=== PATIENT | female | born 1990 | race Caucasian/White ===

== ENCOUNTER 2017-03-20 19:41 | Emergency (ER) | payer BC, SELFPAY | END 2017-03-20 20:28 | disposition home or self-care (01) | LOC: ERS 19:41 | DX: H66.91 Otitis media, unspecified, right ear (principal) | CPT/HCPCS: 99282 ==

== ENCOUNTER 2018-03-14 22:51 | Emergency (ER) | payer SELFPAY | END 2018-03-14 23:44 | disposition home or self-care (01) | LOC: ERS 22:51 | DX: N30.90 Cystitis, unspecified without hematuria (principal); M62.838 Other muscle spasm | CPT/HCPCS: 99283 ==

== ENCOUNTER 2018-03-21 00:21 | Emergency (ER) | payer SELFPAY ==
[2018-03-21 01:06] LABS: Bilirubin Negative (Negative); Blood, Urine Small (Negative); Clarity CLEAR (Clear); Glucose, Urine (Dipstick) Negative (Negative); Leukocyte Small (Negative); Nitrite Negative (Negative); Pregnancy Test - Urine (BHCG) Negative (Negative); Pregu Control Background? CLEAR/WHITE (CLR/WHITE); Pregu Control Bar Appear? YES (CONTROL BAR); Protein, Urine (Dipstick) Negative (Neg-Trace); Specific Gravity 1.017 (1.002-1.036); Specific Gravity, Urine 1.017 (1.002-1.036); Urobilinogen 0.2 mg/dL (0.2-1.0); pH, Urine 5.5 (5.0-9.0)
[2018-03-21 01:08] LABS: Bacteria/HPF None Seen HPF (None Seen); Hyaline Casts/LPF 0-3 HYALINE CAST LPF (0-3 Hyaline); Pathc Cast-AUWi Flag 0.29 (0-2.49); Squamous Epithelial 0-3 HPF (0-3); WBC/HPF 0-3 HPF (0-3)
[2018-03-21] MEDS ORDERED: Ketorolac Tromethamine 30 MG/ML VIAL ONE (03:27)
== END 2018-03-21 03:51 | disposition home or self-care (01) ==
LOC: ERS 00:21
DX: M54.5 Low back pain (principal); F41.9 Anxiety disorder, unspecified
CPT/HCPCS: 81003; 81015; 81025; 96372; J1885

== ENCOUNTER 2018-03-24 16:24 | Emergency (ER) | payer SELFPAY ==
[2018-03-24] MEDS ORDERED: Acetaminophen 500 MG TAB ONE (16:51)
== END 2018-03-24 18:28 | disposition home or self-care (01) ==
LOC: ERS 16:24
DX: J11.1 Influenza due to unidentified influenza virus with other respiratory manifestations (principal); Z79.899 Other long term (current) drug therapy
CPT/HCPCS: 99283

== ENCOUNTER 2018-06-28 12:35 | Emergency (ER) | payer SELFPAY ==
[2018-06-28] MEDS ORDERED: Ketorolac Tromethamine 30 MG/ML VIAL ONE (13:05)
[2018-06-28] MEDS ORDERED: Dexamethasone 4 mg/ml Vial ONE (13:05)
== END 2018-06-28 13:39 | disposition home or self-care (01) ==
LOC: ERS 12:35
DX: J02.9 Acute pharyngitis, unspecified (principal)
CPT/HCPCS: 87081; 87430; 96372; J1100; J1885

== ENCOUNTER 2018-08-14 23:08 | Emergency (ER) | payer SELFPAY ==
[2018-08-14 23:39] LABS: #Basophils 0.1 thou/uL (0.0-0.2); #Eosinphils 0.2 thou/uL (0.0-0.7); #Lymphocytes 3.2 thou/uL (1.20-3.40); #Monocytes 0.6 thou/uL (0.11-0.59); #Neutrophils 6.5 thou/uL (1.40-6.50); %Basophils 0.7 % (0.0-1.0); %Eosinophils 1.5 % (0.0-10.0); %Lymphocytes 30.6 % (21.0-51.0); %Monocytes 5.5 % (0.0-10.0); %Neutrophils 61.7 % (42.0-75.0); Hemoglobin 12.1 g/dL (12.0-16.0); Mean Corpuscular Hemoglobin 28.5 pg (27.0-31.0); Mean Corpuscular Volume 86.5 fL (78.0-98.0); Mean Platelet Volume 6.1 fL (7.4-10.4); Platelet Count 328 thou/uL (130-400); RBC Distribution Width 13.1 % (11.5-14.5); Red Blood Cell (RBC) Count 4.23 mill/uL (4.20-5.40); White Blood Cell (WBC) Count 10.5 thou/uL (4.8-10.8)
[2018-08-14 23:39] LABS: Bilirubin Negative (Negative); Blood, Urine Trace (Negative); Clarity Clear (Clear); Glucose, Urine (Dipstick) Negative (Negative); Leukocyte Trace (Negative); Nitrite Negative (Negative); Protein, Urine (Dipstick) Negative (Neg-Trace); Urobilinogen 0.2 mg/dL (0.2-1.0)
[2018-08-14 23:48] LABS: BHCG - Serum POSITIVE (NEGATIVE); Pregs Control Background? CLEAR/WHITE (CLR/WHITE); Pregs Control Bar Appear? YES (CONTROL BAR)
[2018-08-14 23:50] LABS: Bacteria/HPF 1+ HPF (None Seen); RBC/HPF 0-3 HPF (0-3); WBC/HPF 0-3 HPF (0-3)
[2018-08-14 23:58] LABS: ALT (SGPT) 16 U/L (8-55); AST (SGOT) 16 U/L (5-34); Albumin 4.5 g/dL (3.5-5.0); Alkaline Phosphatase 51 U/L (40-150); Anion Gap 13 mmol/L (10-20); BUN (Urea Nitrogen) 14 mg/dL (7.0-18.7); Bilirubin, Total 0.3 mg/dL (0.2-1.2); Calc. Creatinine Clearance 0 mL/min (70-130); Calcium 10.2 mg/dL (7.8-10.44); Carbon Dioxide 24 mmol/L (22-29); Chloride 104 mmol/L (98-107); Estimated GFR-MDRD Greater than 90; Globulin 3.4 g/dL (2.4-3.5); Glucose 94 mg/dL (70-105); Potassium 3.9 mmol/L (3.5-5.1); Protein, Total 7.9 g/dL (6.0-8.3); Sodium 137 mmol/L (136-145)
--- NOTE | 2018-08-15 07:52 | ULT ---
PRELIMINARY REPORT/[facility]/EMERGENCY AFTER HOURS PROCEDURE: EXAMS: US First Trimester, Transabdominal US , Transvaginal US Duplex Arterial/Venous of the Pelvis, Complete CLINICAL HISTORY: with pain. TECHNIQUE: Real-time transabdominal and transvaginal obstetrical ultrasound of the maternal pelvis and a first trimester with image documentation. Transvaginal imaging was used for better evaluation of the fetus and adnexa. Real-time duplex ultrasound scan of the pelvis integrating B-mode twodimensi onal vascular structure, Doppler spectral analysis and color flow Doppler imaging. COMPARISON: No relevant prior studies available. FINDINGS: Gestation: There are products of an intrauterine gestation as evidenced by gestational sac. There is no visible pole. There are no appreciable heart tones. Estimated sonographic age based on mean sac diameter: 5 weeks 0 days. Estimated date of confinement based on mean sac diameter: 2.07 Maternal anatomy: Uterus: Endometrium thickened at 18 mm, which can be seen in early gestation. Ovaries: No solid masses. Normal vascular flow bilaterally. Adnexa: Unremarkable. Free fluid: Absent. Impression: Products of an intrauterine gestation are identified however viability cannot be established at this time. Differential considerations include: -Viable gestation, too early to visualize pole / heart tones. -Blighted ovum / nonviable gestation. -An ectopic gestation is unlikely given presence of intrauterine products. Thank you for allowing us to participate in the care of your patient. Dictated and Authenticated by: Dodie Nagy MD 08/15/2018 3:11 AM Central Time ([place] & [place]) FINAL REPORT US Pelvic Transvag W Doppler History: [Pelvic pain] Comparison: Pelvic ultrasound 2009 Findings/Impression: Real-time grayscale, color, and spectral analysis of the pelvis was performed t ransabdominal and transvaginal approach. Findings and impression are concordant with the preliminary report. Close follow-up hCG and ultrasound is recommended. Transcribed Date/Time: 08/15/2018 8:05 AM
== END 2018-08-15 03:32 | disposition home or self-care (01) ==
LOC: SCSER 23:08
DX: O23.41 Unspecified infection of urinary tract in pregnancy, first trimester (principal)
CPT/HCPCS: 36415; 76856; 80053; 81003; 81015; 84702; 84703; 85025

== ENCOUNTER 2018-08-16 14:01 | Emergency (ER) | payer SELFPAY ==
--- NOTE | 2018-08-16 15:40 | ULT ---
PELVIC ULTRASOUND INCLUDING TRANSABDOMINAL AND TRANSVAGINAL AND VASCULAR DUPLEX IMAGING: HISTORY: Pain. COMPARISON: 08/15/2018. FINDINGS: HCG is now 3932.06 whereas it was approximately 200 at 1:00 on 08/15/2018. The uterus measures 10.4 x 6.3 x 6.9 cm. The right ovary measures 2.8 x 2.3 x .2 cm. Left ovary 2.7 x 2.0 x 1.8 cm. Small gestational sac is again noted. By size measurement, it measures approximately 5 weeks 2 days which is slightly discrepant from the prior study of 08/15/2018, but I am not sure whether this is sign ificant given small overall size and possible different points of measurement. Trace cul-de-sac flui d. IMPRESSION: Small gestational sac. It appears to be very slightly smaller than from the prior study, although th is small amount of difference could be potentially related to different points of measurement. Elieser nued short-term followup HCGs are recommended. If there remains clinical concern for viability , a followup ultrasound study in a week or so might be considered. POS: [facility]
== END 2018-08-16 15:58 | disposition home or self-care (01) ==
LOC: SCSER 14:01
DX: O20.0 Threatened abortion (principal); Z3A.01 Less than 8 weeks gestation of pregnancy
CPT/HCPCS: 76856; 84702

== ENCOUNTER 2018-09-25 06:42 | Emergency (ER) | payer MEDICAID, OTHER ==
[2018-09-25] MEDS ORDERED: diphenhydrAMINE 50 MG CAP ONE (07:16)
[2018-09-25 07:24] LABS: #Eosinphils 0.1 thou/uL (0.0-0.7); #Lymphocytes 2.7 thou/uL (1.20-3.40); #Monocytes 0.7 thou/uL (0.11-0.59); #Neutrophils 4.1 thou/uL (1.40-6.50); %Basophils 0.6 % (0.0-1.0); %Eosinophils 1.9 % (0.0-10.0); %Lymphocytes 35.3 % (21.0-51.0); %Monocytes 8.5 % (0.0-10.0); %Neutrophils 53.7 % (42.0-75.0); Hemoglobin 11.5 g/dL (12.0-16.0); Mean Corpuscular HGB CONC 32.3 g/dL (32.0-36.0); Mean Corpuscular Hemoglobin 28.6 pg (27.0-31.0); Mean Corpuscular Volume 88.4 fL (78.0-98.0); Mean Platelet Volume 6.8 fL (7.4-10.4); Platelet Count 301 thou/uL (130-400); Red Blood Cell (RBC) Count 4.04 mill/uL (4.20-5.40); White Blood Cell (WBC) Count 7.7 thou/uL (4.8-10.8)
[2018-09-25 08:37] LABS: Bilirubin Negative (Negative); Blood, Urine Negative (Negative); Clarity Clear (Clear); Glucose, Urine (Dipstick) Normal (Negative); Leukocyte Negative Leu/uL (Negative); Nitrite Negative (Negative); Protein, Urine (Dipstick) Negative (Neg-Trace); Urobilinogen Normal mg/dL (Less than 2)
--- NOTE | 2018-09-25 11:08 | ULT ---
PELVIC ULTRASOUND: HISTORY: Pelvic pain. FINDINGS: Real-time imaging of the pelvis was obtained transabdominally. This shows a single viable intrauteri ne . [place] to rump length measures are 4.3 cm corresponding to 11 weeks 1 day. Gestational sac measures 4.8 cm corresponding to 10 weeks 3 days. heart rate is 173 b.p.m. No subchorion ic bleed is noted. Follicles are seen involving the right ovary. The left ovary is normal in appearance. DOPPLER EVALUATION WITH SPECTRAL ANALYSIS: Normal flow is shown to the adnexa. IMPRESSION: Single viable intrauterine . Measurements correspond to a gestational age of 10 weeks 6 day s. Estimated date of delivery 04/17/2019. POS: [facility]
== END 2018-09-25 09:04 | disposition home or self-care (01) ==
LOC: ERS 06:42
DX: O99.89 Other specified diseases and conditions complicating pregnancy, childbirth and the puerperium (principal); R10.9 Unspecified abdominal pain; Z3A.11 11 weeks gestation of pregnancy
CPT/HCPCS: 36415; 76856; 81003; 84702; 85025; 93976; Q0163

== ENCOUNTER 2018-09-26 07:56 | Emergency (ER) | payer OTHER ==
[2018-09-26] MEDS ORDERED: diphenhydrAMINE 50 MG/ML VIAL ONE (08:31)
[2018-09-26] MEDS ORDERED: Metoclopramide HCl 10 MG/2 ML VIAL ONE (08:31)
[2018-09-26 08:50] LABS: #Eosinphils 0.1 thou/uL (0.0-0.7); #Lymphocytes 0.8 thou/uL (1.20-3.40); #Monocytes 0.4 thou/uL (0.11-0.59); #Neutrophils 8.7 thou/uL (1.40-6.50); %Basophils 0.3 % (0.0-1.0); %Eosinophils 0.7 % (0.0-10.0); %Lymphocytes 8.3 % (21.0-51.0); %Monocytes 4.3 % (0.0-10.0); %Neutrophils 86.4 % (42.0-75.0); Hemoglobin 13.1 g/dL (12.0-16.0); Mean Corpuscular HGB CONC 32.6 g/dL (32.0-36.0); Mean Corpuscular Volume 88.8 fL (78.0-98.0); Mean Platelet Volume 6.8 fL (7.4-10.4); Platelet Count 281 thou/uL (130-400); RBC Distribution Width 12.1 % (11.5-14.5); Red Blood Cell (RBC) Count 4.52 mill/uL (4.20-5.40); White Blood Cell (WBC) Count 10.1 thou/uL (4.8-10.8)
[2018-09-26 09:09] LABS: ALT (SGPT) 10 U/L (8-55); AST (SGOT) 12 U/L (5-34); Albumin 3.8 g/dL (3.5-5.0); Alkaline Phosphatase 45 U/L (40-150); Anion Gap 12 mmol/L (10-20); BUN (Urea Nitrogen) 8 mg/dL (7.0-18.7); Bilirubin, Total 0.4 mg/dL (0.2-1.2); Calc. Creatinine Clearance 0 mL/min (70-130); Calcium 9.4 mg/dL (7.8-10.44); Carbon Dioxide 21 mmol/L (22-29); Chloride 104 mmol/L (98-107); Estimated GFR-MDRD Greater than 90; Globulin 3.4 g/dL (2.4-3.5); Glucose 108 mg/dL (70-105); Potassium 3.9 mmol/L (3.5-5.1); Protein, Total 7.2 g/dL (6.0-8.3); Sodium 133 mmol/L (136-145)
== END 2018-09-26 10:23 | disposition home or self-care (01) ==
LOC: ERS 07:56
DX: O21.9 Vomiting of pregnancy, unspecified (principal); O99.89 Other specified diseases and conditions complicating pregnancy, childbirth and the puerperium; R19.7 Diarrhea, unspecified; Z3A.10 10 weeks gestation of pregnancy
CPT/HCPCS: 80053; 85025; 96361; 96365; 96372; 96375; J0500; J1200; J2765

== ENCOUNTER 2018-12-16 16:34 | Day surgery (SDC) | payer OTHER ==
[2018-12-16 17:39] VITALS: TEMP 98.6; BMI 29.2
[2018-12-16 18:02] LABS: Amnisure Internal Control QC ACCEPTABLE (ACCEPTABLE); Amnisure Test No Membranes Rupture (No Rupture)
[2018-12-16] MEDS ORDERED: hydrALAZINE 20 MG/ML VIAL SLOW IVP PRN (18:09)
--- NOTE | 2018-12-17 07:25 | PRG ---
DATE OF SERVICE: 12/16/2018 TIME OF SERVICE: 1810 hours. PRESENTING COMPLAINT: Possible rupture of membranes. HISTORY OF PRESENT ILLNESS: Ms. Brantley is a 28-year-old 3, para 2, at 21 weeks and 6 days with due date of 04/22/2019. She sees Dr. Dimas. She reports today, at the mailbox, she had liquid running down her legs and then noted again a little bit later. She denies current leakage of fluid. She denies contractions. She denies vaginal bleeding. She reports an active fetus. WHARF HELPER HISTORY: x2. Blood type A positive. MEDICAL HISTORY: Mixed anxiety, depression disorder. SURGICAL HISTORY: [place] tooth. ALLERGIES: NONE. MEDICATIONS: Sertraline and vitamins. SOCIAL HISTORY: Denies tobacco, alcohol, or IV drug abuse. FAMILY HISTORY: Noncontributory. REVIEW OF SYSTEMS: Noncontributory. PHYSICAL EXAMINATION: GENERAL: White female, in no acute distress. VITAL SIGNS: Temperature 98.4, pulse 85, respirations are 18, and blood pressure 118/72. HEENT: Within normal limits. LUNGS: Clear to auscultation bilaterally. HEART: Regular rhythm. ABDOMEN: Soft and nontender. Fundal height 22. FHTs 140s. PELVIS: Vulva without lesions, vagina without discharge. Cervix closed long and high. No pooling of fluid noted in the vagina. EXTREMITIES: No clubbing, cyanosis, or edema. DIAGNOSTIC STUDIES: LABORATORY RESULTS: AmniSure is negative for rupture of membranes. IMPRESSION: Asymptomatic vaginal discharge/leukorrhea without evidence of rupture of membranes or pathologic discharge at 21 to 22 weeks' gestation. PLAN: ER precautions. Discharge home. Keep scheduled followup with Dr. Dimas. Job ID: [id number]
== END 2018-12-16 18:16 | disposition home health service (06) ==
LOC: L&D/OP 16:34
PROVIDERS: ATTEND Obstetrics & Gynecology
DX: O99.89 Other specified diseases and conditions complicating pregnancy, childbirth and the puerperium (principal); N89.8 Other specified noninflammatory disorders of vagina; O99.342 Other mental disorders complicating pregnancy, second trimester; F41.3 Other mixed anxiety disorders; F32.9 Major depressive disorder, single episode, unspecified; Z3A.21 21 weeks gestation of pregnancy; Z79.899 Other long term (current) drug therapy
CPT/HCPCS: 84112

== ENCOUNTER 2019-03-17 00:42 | Day surgery (SDC) | payer OTHER ==
[2019-03-17 01:17] VITALS: BP 121/76; TEMP 99.3; BMI 30.7
[2019-03-17] MEDS ORDERED: hydrALAZINE 20 MG/ML VIAL SLOW IVP PRN (01:40)
[2019-03-17 02:04] LABS: Bilirubin Negative (Negative); Blood, Urine Negative (Negative); Clarity Clear (Clear); Glucose, Urine (Dipstick) Normal (Negative); Leukocyte 250 Leu/uL (Negative); Nitrite Negative (Negative); Protein, Urine (Dipstick) Negative (Neg-Trace); RBC/HPF 0-3 HPF (0-3); Squamous Epithelial 0-3 HPF (0-3); Urobilinogen Normal mg/dL (Less than 2); WBC/HPF 0-3 HPF (0-3)
[2019-03-17 02:12] LABS: Bacteria/HPF 1+ HPF (None Seen)
--- NOTE | 2019-03-17 02:36 | PRG ---
DATE OF SERVICE: 03/17/2019 CHIEF COMPLAINT: Pelvic pressure and contractions. PRIMARY OB: Letty Dimas DO. HISTORY OF PRESENT ILLNESS: The patient is a 29-year-old, G3, P2 female with an intrauterine at 34 weeks and 6 days, who is presenting to Labor and Delivery after experiencing uterine contractions and pelvic pressure this evening. She felt like the baby was going to fall out and came for evaluation. The patient has had 2 previous pregnancies, both delivered at term. She does have a history of urinary tract infections prior, but has had 1 during this . She denies any change in discharge. She denies any recent intercourse, any recent illness, fever, fall, headache, chest pain, shortness of breath, nausea, vomiting, diarrhea, constipation, hip problems, knee problems, muscle weakness, new rashes, vaginal bleeding, leakage of fluid, urinary urgency or frequency. PAST MEDICAL HISTORY: She has had anxiety and depression. PAST SURGICAL HISTORY: She has had her wisdom tooth removed. ALLERGIES: NO KNOWN DRUG ALLERGIES. MEDICATIONS: 1. vitamins. 2. Zoloft. SOCIAL HISTORY: Denies drug, alcohol or tobacco use. REVIEW OF SYSTEMS: Per HPI. PHYSICAL EXAMINATION: VITAL SIGNS: Blood pressure 121/76, heart rate of 82, saturating 98% on room air, temperature 99.3. GENERAL: She appears to be in no acute distress. She is alert, oriented, cooperative, and pleasant to interact with. HEAD: Normocephalic and atraumatic. LUNGS: Clear to auscultation bilaterally. HEART: Has a regular rate and rhythm. ABDOMEN: Gravid, soft, nontender. She does have some mild tenderness with deviation of the uterus in the suprapubic region. EXTREMITIES: Nontender, nonedematous. GENITOURINARY: Vulva without masses, lesions, or erythema. She does have a Bartholin's gland cyst on the left side that is approximately 1 to 1.5 cm in diameter. Cystic fluid appears to be clear. Vagina is moist with moderate amount of discharge. Cervix is visibly closed. VPIII is collected. On digital exam, cervix is closed and thick. She does have tenderness in her pelvic floor musculature and along the vaginal sidewall. heart tracing shows the fetus with a baseline in the 130s with moderate long-term variability, positive 15/15 accelerations. Tocometer showing some irritability, but no regular contraction pattern. ASSESSMENT AND PLAN: The patient is a 29-year-old multiparous female with an intrauterine at 34 weeks and 6 days, having pelvic pressure and contractions, but no evidence of labor. Urinalysis and VPIII both have been collected and are being sent for evaluation. Fetus has a category 1 tracing and reactive non-stress test. We will be awaiting lab results. Otherwise, the patient is also getting IV hydration. We will review results and make management decisions at that time. UA sig for bacteruria, LE. macrobid 100 bid x1wk provided. vp3 pending.pt asked to call in the morning for results no evidence of labor. fetus reactive with cat 1. Job ID: [id number] [facility]
== END 2019-03-17 02:48 | disposition home health service (06) ==
LOC: L&D/OP 00:42
PROVIDERS: ATTEND Obstetrics & Gynecology
DX: O47.03 False labor before 37 completed weeks of gestation, third trimester (principal); O99.343 Other mental disorders complicating pregnancy, third trimester; F41.9 Anxiety disorder, unspecified; F32.9 Major depressive disorder, single episode, unspecified; Z3A.34 34 weeks gestation of pregnancy; Z79.899 Other long term (current) drug therapy
CPT/HCPCS: 81001; 87480; 87510; 87660

== ENCOUNTER 2019-03-24 19:02 | Day surgery (SDC) | payer OTHER ==
[2019-03-24 19:38] VITALS: BMI 31.0
[2019-03-24] MEDS ORDERED: hydrALAZINE 20 MG/ML VIAL SLOW IVP PRN (20:26)
[2019-03-24] MEDS ORDERED: metroNIDAZOLE 500 MG TAB PO SCH (20:30)
--- NOTE | 2019-03-24 22:19 | PRG ---
DATE OF SERVICE: 03/24/2019 PRIMARY OB: Dr. Letty Dimas. CHIEF COMPLAINT: Abdominal pain. HISTORY OF PRESENT ILLNESS: The patient is a 29-year-old, G3, P2 female with an intrauterine at 35 weeks and 6 days, presenting to Labor and Delivery with abdominal pains that have been present now for several days. The patient was seen here a week ago, where she was diagnosed with urinary tract infection, placed on Macrobid and diagnosis of bacterial vaginosis and [place] on a VPIII, the plan had been for the patient to follow up in the morning with phone call. This did not happen and the patient reports that she has not been treated. The patient denies any change in her discharge, leakage of fluid, or vaginal bleeding. She does report she was seen by Dr. Beckford earlier this morning and was noted to have a cervical exam of 1 cm and was discharged home. The patient reports her contractions over the last several hours has increased in intensity. She denies any fever, fall, headache, chest pain, or shortness of breath. She has had some nausea. Denies vomiting. Reports two days of diarrhea. Denies any new rashes, hip problems, knee problems, or muscle weakness. Denies chest pain or shortness of breath. Denies vaginal bleeding, leakage of fluid, urinary urgency or frequency. PAST MEDICAL HISTORY: Anxiety and depression. PAST SURGICAL HISTORY: [place] tooth extraction. ALLERGIES: NO KNOWN DRUG ALLERGIES. MEDICATIONS: vitamins and Zoloft. SOCIAL HISTORY: Denies drug, alcohol, or tobacco use. REVIEW OF SYSTEMS: Per HPI. OB LABS: Blood type is A positive. Antibody screen is negative. VDRL is nonreactive. Hepatitis B surface antigen is nonreactive. HIV is nonreactive. In the first and third trimester, GC chlamydia negative. She is rubella immune. Diabetes screen is 104. Third trimester VDRL is negative. REVIEW OF SYSTEMS: Per HPI. PHYSICAL EXAMINATION: VITAL SIGNS: Blood pressure is 126/75, heart rate of 86, respiratory rate of 18, and temperature 97.9. GENERAL: She appears to be in no acute distress. She is alert, oriented, cooperative, and pleasant to interact with. HEAD: Normocephalic and atraumatic. LUNGS: Clear to auscultation bilaterally. HEART: Regular rate and rhythm. ABDOMEN: Gravid, soft with some mild tenderness. EXTREMITIES: Nontender, nonedematous. : Cervical exam per nursing staff is 1 cm and soft and thick. heart tracing shows the fetus with a baseline in the 140s with moderate long-term variability, positive 15 x 15 accelerations, no decelerations. Tocometer is showing contractions about every 3 to 5 minutes. ASSESSMENT AND PLAN: The patient is a 29-year-old multiparous female with an intrauterine at 35 weeks and 6 days with untreated bacterial vaginosis and yeast infection and recently treated urinary tract infection. These may be attributing to her irritability and crampiness as the patient does not appear to be uncomfortable with these contractions while I was present in the room and the cervix is unchanged, though soft. Plan at this time is to keep her here for another couple hours, recheck her and see if she is making any cervical change. Fetus has a category I tracing and reactive NST. The patient, if unchanged will be discharged home. She has been given a dose of metronidazole tonight with a prescription being sent to [facility] at [place]. She has also been counseled to get Monistat [id number] for her candidal infection. Job ID: [id number]
== END 2019-03-24 22:45 | disposition home or self-care (01) ==
LOC: L&D/OP 19:02
PROVIDERS: ATTEND Obstetrics & Gynecology
DX: O98.813 Other maternal infectious and parasitic diseases complicating pregnancy, third trimester (principal); B37.3 Candidiasis of vulva and vagina; O23.593 Infection of other part of genital tract in pregnancy, third trimester; B96.89 Other specified bacterial agents as the cause of diseases classified elsewhere; O23.43 Unspecified infection of urinary tract in pregnancy, third trimester; Z3A.35 35 weeks gestation of pregnancy
CPT/HCPCS: 87081; 99283

== ENCOUNTER 2019-03-31 03:48 | Day surgery (SDC) | payer OTHER ==
[2019-03-31 04:16] VITALS: BMI 29.7
[2019-03-31] MEDS ORDERED: hydrALAZINE 20 MG/ML VIAL SLOW IVP PRN (08:45)
--- NOTE | 2019-03-31 09:18 | PRG ---
DATE OF SERVICE: 03/31/2019 PRIMARY OB: Letty Dimas DO CHIEF COMPLAINT: Abdominal pains. HISTORY OF PRESENT ILLNESS: The patient is a 29-year-old, G3, P2, female with an intrauterine at 36 weeks and 6 days, presenting to Labor and Delivery with onset of abdominal pains that she reports she has been feeling about every 3 to 5 minutes. She denies any leakage of fluid or vaginal bleeding. Denies any recent illness, fever, fall, headache, chest pain, shortness of breath, nausea, vomiting, diarrhea, constipation, hip problems, knee problems, or muscle weakness. PAST MEDICAL HISTORY: Anxiety and depression. PAST SURGICAL HISTORY: [place] tooth extraction. ALLERGIES: NO KNOWN DRUG ALLERGIES. MEDICATIONS: Zoloft and vitamins. SOCIAL HISTORY: Denies drug, alcohol, or tobacco use. OB LABS: Blood type is A positive. Antibody screen is negative. VDRL is nonreactive in the first trimester and the third trimester. Hepatitis B surface antigen nonreactive. HIV nonreactive in the first trimester. GC and Chlamydia negative. She is rubella immune. Diabetes screen is 104. REVIEW OF SYSTEMS: Per HPI. PHYSICAL EXAMINATION: VITAL SIGNS: Blood pressure is 128/77, pulse is 71, respiratory rate of 18, and temperature 98.4. GENERAL: She appears to be in no acute distress. She is alert and oriented, cooperative and pleasant to interact with. HEENT: Head is normocephalic, atraumatic. LUNGS: Clear to auscultation bilaterally. HEART: Has a regular rate and rhythm. ABDOMEN: Gravid, soft, and nontender. EXTREMITIES: Nontender, nonedematous. Cervical exam per nursing staff is 1.5, 50, and -3 station unchanged after 2 hours. DIAGNOSTIC DATA: heart tracing shows the fetus with a baseline in the 130s with moderate long-term variability, positive accels, no decels. Tocometer shows irritability with occasional contractions. ASSESSMENT AND PLAN: The patient is a 29-year-old, G3, P2, female with an intrauterine at 36 weeks and 6 days, having contractions, but no evidence of labor at this time. Fetus has a category I tracing, reactive NST. The patient is being discharged home with instructions to follow up with her primary OB, Dr. Dimas, as scheduled. Job ID: [id number]
== END 2019-03-31 06:32 | disposition home or self-care (01) ==
LOC: L&D/OP 03:48
PROVIDERS: ATTEND Obstetrics & Gynecology
DX: O47.03 False labor before 37 completed weeks of gestation, third trimester (principal); O99.343 Other mental disorders complicating pregnancy, third trimester; F41.9 Anxiety disorder, unspecified; F32.9 Major depressive disorder, single episode, unspecified; Z3A.36 36 weeks gestation of pregnancy; Z79.899 Other long term (current) drug therapy
CPT/HCPCS: 99283

== ENCOUNTER 2019-04-15 05:13 | Inpatient (IN) | payer OTHER ==
[2019-04-15] MEDS ORDERED: Promethazine HCl 25 MG/ML VIAL IM PRN ×2 (05:44→08:32)
[2019-04-15] MEDS ORDERED: HYDROcodone/Acetaminophen 5/325 mg Tablet PO PRN (05:44)
[2019-04-15] MEDS ORDERED: Misoprostol 200 MCG TAB PR PRN (05:44)
[2019-04-15] MEDS ORDERED: Diphenoxylate HCl/Atropine Tablet PO PRN (05:44)
[2019-04-15] MEDS ORDERED: Lidocaine 1% (PF) 30 ML VIAL SC PRN (05:44)
[2019-04-15] MEDS ORDERED: Methylergonovine 0.2 MG/ML VIAL IM PRN (05:44)
[2019-04-15] MEDS ORDERED: Butorphanol Tartrate 1 MG/ML VIAL SLOW IVP PRN (05:44)
[2019-04-15] MEDS ORDERED: hydrALAZINE 20 MG/ML VIAL SLOW IVP PRN ×2 (05:44→12:37)
[2019-04-15] MEDS ORDERED: Acetaminophen 500 MG TAB PO PRN (05:44)
[2019-04-15] MEDS ORDERED: Ondansetron PF 4 MG/2 ML Vial IVP PRN ×2 (05:44→08:32)
[2019-04-15] MEDS ORDERED: NS w/ Oxytocin 10 units 500 ML IV SCH (05:44)
[2019-04-15] MEDS ORDERED: Carboprost 250 MCG/ML AMP IM PRN (05:44)
[2019-04-15] MEDS ORDERED: Ibuprofen 800 MG TAB PO PRN (05:44)
[2019-04-15 05:50] VITALS: BMI 31.6
[2019-04-15] MEDS: Lactated Ringer's 1,000 ML IV SCH ×2 (05:55→08:21)
[2019-04-15 06:17] LABS: Hemoglobin 10.9 g/dL (12.0-16.0); Mean Corpuscular HGB CONC 30.4 g/dL (32.0-36.0); Mean Corpuscular Volume 82.5 fL (78.0-98.0); Mean Platelet Volume 9.3 fL (7.4-10.4); Platelet Count 236 thou/uL (130-400); RBC Distribution Width 16.4 % (11.5-14.5); Red Blood Cell (RBC) Count 4.37 mill/uL (4.20-5.40); White Blood Cell (WBC) Count 9.4 thou/uL (4.8-10.8)
[2019-04-15 06:57] LABS: Syphilis Antibody Nonreactive (Nonreactive); Syphilis Antibody Index 0.04 S/CO (<1.00 Non-Reactive)
[2019-04-15 06:58] LABS: HBSAg Index 0.21 S/CO (0-0.99); HIV (1/2) Antibody/Antigen Non-Reactive (NonReactive); HIV 1/2 INDEX 0.17 S/CO (<1.00); Hep B Surf Ag Non-Reactive S/CO (NonReactive)
[2019-04-15] MEDS ORDERED: Fentanyl 4 mcg/Bup 0.1% Cadd 100 ML ONE (07:34)
--- NOTE | 2019-04-15 07:58 | PDOC.LDHP ---
Labor and Delivery H&P Chief complaint: scheduled induction HPI: 29 yo @ 39w0d by LMP c/w 7 week CRL who presents for EIOL. Pt has h/o anxiety and depression on prozac and anemia on Fe. Current gestational age (weeks): 39 Due date: 04/22/19 Dating criteria: last menstrual period Grav: 3 Para: 2 OB History Details: 2 term SVDs Current complications: none Abnormal US findings: No Past Medical History: Anemia Anxiety/depression Current medications: pre- vitamins, iron Previous surgical history: other (Dental surgery) Allergies/Adverse Reactions: Allergies Allergy/AdvReac Type Severity Reaction Status Date / Time No Known Allergies Allergy Verified 03/24/19 19:33 Social history: none - Physical Exam Vital signs reviewed and normal: yes General: NAD Heart: RRR Lungs: nonlabored breathing Abdomen: gravid Extremeties: no edema FHT: category 1 (140s, mod sue, +accels, no decels) [place] contractions every: q4-5 min - Vaginal Exam cm dilated: 3 (cephalic ) Effacement: 50% Station: -3 - OB Labs Blood type: A RH: negative Antibody Screen: negative HIV: negative RPR: negative HEPSAg: negative 1 hour GCT: negative GBS: negative Urine drug screen: negative Rubella: immune Additional Labs: NIPT, msAFP, carrier screening wnl - Assessment @ 39w0d EIOL Anxiety/depression Anemia - Plan Plan: admit to L&D, informed consent obtained, anesthesia consult for pain management -: Pitocin for IOL
[2019-04-15] MEDS ORDERED: Acetaminophen 325 MG TAB PO PRN (08:32)
[2019-04-15] MEDS ORDERED: Naloxone HCl 0.4 mg/ml Vial IVP PRN ×2 (08:32)
[2019-04-15] MEDS ORDERED: Lactated Ringer's 500 ML IV PRN (08:32)
[2019-04-15] MEDS ORDERED: diphenhydrAMINE 50 MG/ML VIAL IVP PRN (08:32)
[2019-04-15] MEDS ORDERED: ePHEDrine/0.9% NaCl/PF SYRINGE 50 mg/10 ml SLOW IVP PRN (08:32)
[2019-04-15] MEDS ORDERED: Communication Order-Pharmacy FS PRN (08:45)
[2019-04-15] MEDS ORDERED: Fentanyl 4 mcg/Bupivacaine 0.1% Cassette 100 ML EPIDURAL SCH (08:45)
[2019-04-15] MEDS: NS / Oxytocin 40 units/1000ml 1,000 ML IV PRN ×2 (10:13→12:36)
--- NOTE | 2019-04-15 10:49 | PDOC.OPDEL ---
OB Operative/Delivery Note Delivery Dr/Surgeon: Letty Dimas DO Pre-Delivery Diagnosis: elective induction Procedure/Post Delivery Dx: spontaneous vaginal delivery Weeks gestation: 39 Anesthesia: epidural - Findings A Sex: female - 1 min: 8 - 5 min: 9 - Additional Findings/Plan Placenta delivered: spontaneous Repaired Obstetrical Laceration: 1st degree Estimated blood loss: QBL 125 cc Compilations/Other Findings: in FARHAT position Terminal meconium Normal appearing placenta Post delivery plan: routine recovery
[2019-04-15] MEDS ORDERED: Benzocaine-Menthol 82.5 ML CAN TOP PRN (12:37)
[2019-04-15] MEDS ORDERED: Milk Of Magnesia 30 ML UDCUP PO PRN (12:37)
[2019-04-15] MEDS ORDERED: Preparation H Ointment 28 GM TUBE PR PRN (12:37)
[2019-04-15] MEDS ORDERED: NS / Oxytocin 40 units/1000ml 1,000 ML IV SCH (12:37)
[2019-04-15] MEDS ORDERED: Bisacodyl 10 MG SUPP PR PRN (12:37)
[2019-04-15] MEDS ORDERED: Lanolin Ointment 7 GM TUBE TOP PRN (12:37)
[2019-04-15] MEDS ORDERED: diphenhydrAMINE 25 MG CAP PO PRN (12:37)
[2019-04-15] MEDS: Ibuprofen 800 MG TAB PO SCH ×2 (15:21→21:55)
[2019-04-15] MEDS: HYDROcodone/Acetaminophen 5/325 mg Tablet PO PRN ×2 (15:21→20:07)
[2019-04-15] MEDS: Ferrous Sulfate 325 MG TAB PO SCH (19:06)
[2019-04-15] MEDS: Docusate Calcium (SURFAK) 240 MG CAP PO SCH (21:55)
[2019-04-16] MEDS: HYDROcodone/Acetaminophen 5/325 mg Tablet PO PRN ×3 (00:09→13:33)
[2019-04-16] MEDS: Ibuprofen 800 MG TAB PO SCH ×2 (05:44→13:33)
[2019-04-16 06:09] LABS: Hemoglobin 10.8 g/dL (12.0-16.0); Mean Corpuscular Hemoglobin 27.7 pg (27.0-31.0); Mean Corpuscular Volume 83.9 fL (78.0-98.0); Mean Platelet Volume 8.8 fL (7.4-10.4); Platelet Count 201 thou/uL (130-400); RBC Distribution Width 16.4 % (11.5-14.5)
--- NOTE | 2019-04-16 07:02 | PDOC.PP ---
Post Progress Note Post Day #: 1 Subjective: NAEO. Doing well, ready for home. PO intake tolerated: yes Flatus: yes Ambulation: yes Vital Signs (12 hours) Temp Pulse Resp BP Pulse Ox 04/16/19 05:40 97.5 F L 72 18 124/81 04/16/19 00:05 98.5 F 79 18 129/74 04/15/19 20:00 98.5 F 72 18 136/80 98 Weight Weight 83.461 kg - Physical Examination Cardiovascular: RRR Respiratory: clear to auscultation bilaterally, non-labored breathing Abdominal: appropriately TTP Psychiatric: A&Ox3, normal affect Result Diagrams: 04/16/19 06:03 Additional Labs: Post Labs Blood Type A POSITIVE 04/15/19 06:03 Hep Bs Antigen Non-Reactive S/CO (NonReactive) 04/15/19 06:04 - Assessment/Plan s/p , PPD1 -ready for home, will send meds -AVSS, no concerns today -answered all questions -instructed to call Dr. Dimas's office to f/u
[2019-04-16 08:09] VITALS: TEMP 98.2
[2019-04-16] MEDS: Docusate Calcium (SURFAK) 240 MG CAP PO SCH (08:11)
[2019-04-16] MEDS: Ferrous Sulfate 325 MG TAB PO SCH (08:13)
[2019-04-16] MEDS ORDERED: Prenatal Vitamin 1 TAB PO SCH (09:00)
[2019-04-16 12:55] VITALS: BP 119/70
--- NOTE | 2019-04-18 21:47 | PQF ---
CONOR Scott [id number] CLINICAL DOCUMENTATION CLARIFICATION FORM: POST DISCHARGE Addendum to original discharge summary date: ___04/16/19 Late entry note date: ___04/19/19 DATE:04/18/2019 ATTN:Conor Dimas Please exercise your independent, professional judgment in responding to the clarification form. Clinical indicators are provided on the bottom of this form for your review Please check appropriate box(s): [ ] Acute blood loss anemia [ ] Post-op anemia related to acute blood loss [ ] Anemia unspecified [x ] Other diagnosis _chronic + acute [ ] Unable to determine In addition, please specify: Present on Admission (POA): [ x ] Yes [ ] No [ ] Unable to determine For continuity of documentation, please document condition throughout progress notes and discharge summary. Thank You. CLINICAL INDICATORS - SIGNS / SYMPTOMS / LABS 04/15 "Anemia on iron supplement" Labor and delivery 04/15 "estimated blood loss:125cc" Labs RBC: 04/15=4.37 04/16=3.90 Labs Hgb: 04/15=10.9 04/16=10.8 Labs Hct: 04/15=36.0 04/16=32.7 RISK FACTORS HP 04/15-39 weeks of gestation Labor and delivery 04/15-s/p Labor and delivery 04/15-First degree laceration TREATMENTS: Labor and delivery 04/15-Repair of laceration Collected 04/15-Hematology monitoring MAR 04/15-IVF MAR 04/15-Ferrous sulfate 325mg Oral (This form is maintained as a part of the permanent medical record) 2014 [employer] All Rights Reserved [email or web address] [phone] [email or web address]
== END 2019-04-16 14:45 | disposition home or self-care (01) | DRG 807 ==
LOC: L&D 05:13 → 3SW 13:52
PROVIDERS: ADMIT Obstetrics & Gynecology; ATTEND Obstetrics & Gynecology
PROC: 10E0XZZ Delivery of Products of Conception, External Approach (ICD-10-PCS; principal; 2019-04-15)
PROC: 3E033VJ Introduction of Other Hormone into Peripheral Vein, Percutaneous Approach (ICD-10-PCS; 2019-04-15)
PROC: 0HQ9XZZ Repair Perineum Skin, External Approach (ICD-10-PCS; 2019-04-15)
DX: O77.0 Labor and delivery complicated by meconium in amniotic fluid (principal); Z37.0 Single live birth; Z3A.39 39 weeks gestation of pregnancy; O70.0 First degree perineal laceration during delivery; O99.02 Anemia complicating childbirth; D64.9 Anemia, unspecified; O99.344 Other mental disorders complicating childbirth; F32.9 Major depressive disorder, single episode, unspecified; F41.9 Anxiety disorder, unspecified
CPT/HCPCS: 36415; 51702; 85027; 86780; 86850; 86900; 86901; 87340; 87389; J2590

== ENCOUNTER 2022-01-10 11:34 | Emergency (ER) | payer OTHER, SELFPAY ==
[2022-01-10 12:17] LABS: BHCG - Serum Negative (NEGATIVE); Pregs Control Background? CLEAR/WHITE (CLR/WHITE); Pregs Control Bar Appear? YES (CONTROL BAR)
[2022-01-10 12:18] LABS: ALT (SGPT) 17 U/L (8-55); AST (SGOT) 17 U/L (5-34); Albumin 4.3 g/dL (3.5-5.0); Alkaline Phosphatase 55 U/L (40-110); Anion Gap 13 mmol/L (10-20); BUN (Urea Nitrogen) 9 mg/dL (7.0-18.7); Bilirubin, Total 0.6 mg/dL (0.2-1.2); Calc. Creatinine Clearance 0 mL/min (70-130); Calcium 9.6 mg/dL (7.8-10.44); Carbon Dioxide 19 mmol/L (22-29); Chloride 106 mmol/L (98-107); Estimated GFR 113; Globulin 3.4 g/dL (2.4-3.5); Glucose 99 mg/dL (70-105); Potassium 4.1 mmol/L (3.5-5.1); Protein, Total 7.7 g/dL (6.0-8.3); Sodium 134 mmol/L (136-145)
[2022-01-10 12:24] LABS: #Basophils 0.1 thou/uL (0.0-0.2); #Lymphocytes 2.4 thou/uL (1.20-3.40); #Monocytes 0.6 thou/uL (0.11-0.59); %Basophils 1.7 % (0.0-1.0); %Eosinophils 0.5 % (0.0-10.0); %Lymphocytes 33.8 % (21.0-51.0); %Monocytes 8.4 % (0.0-10.0); %Neutrophils 55.6 % (42.0-75.0); Hemoglobin 12.9 g/dL (12.0-16.0); Mean Corpuscular HGB CONC 34.5 g/dL (32.0-36.0); Mean Corpuscular Volume 87.2 fl (78.0-98.0); Platelet Count 327 thou/uL (130-400); RBC Distribution Width 12.1 % (11.5-14.5); Red Blood Cell (RBC) Count 4.28 mill/uL (4.20-5.40); White Blood Cell (WBC) Count 7.2 thou/uL (4.8-10.8)
[2022-01-10 12:57] LABS: Bacteria/HPF 4+ HPF (None Seen); Bilirubin Negative (Negative); Blood, Urine Negative (Negative); Clarity Clear (Clear); Glucose, Urine (Dipstick) Normal (Negative); Ketone, Urine Negative (Negative); Leukocyte 250 Leu/uL (Negative); Nitrite Negative (Negative); Protein, Urine (Dipstick) Negative (Neg-Trace); RBC/HPF 0-3 HPF (0-3); Specific Gravity, Urine 1.019 (1.002-1.036); Urobilinogen Normal mg/dL (Less than 2); WBC/HPF 0-3 HPF (0-3); pH, Urine 7.5 (5.0-9.0)
[2022-01-10] MEDS ORDERED: Meclizine HCl 25 MG TAB ONE (14:21)
== END 2022-01-10 16:49 | disposition home or self-care (01) ==
LOC: ERS 11:34
DX: R42 Dizziness and giddiness (principal); E86.0 Dehydration
CPT/HCPCS: 36415; 80053; 81003; 81015; 84703; 85025; 93005; 94760; 96360

== ENCOUNTER 2023-08-18 10:28 | Emergency (ER) | payer OTHER ==
[2023-08-18 11:06] LABS: #Basophils 0.04 10x3/uL (0.0-0.2); %Basophils 0.3 % (0.0-1.0); %Eosinophils 0.7 % (0.0-10.0); %Lymphocytes 12.8 % (21.0-51.0); %Monocytes 6.6 % (0.0-10.0); %Neutrophils 79.3 % (42.0-75.0); Hematocrit 41.3 % (36.0-47.0); Hemoglobin 13.6 g/dL (12.0-16.0); Mean Corpuscular HGB CONC 32.9 g/dL (32.0-36.0); Mean Corpuscular Hemoglobin 28.2 pg (27.0-31.0); Mean Corpuscular Volume 85.5 fL (78.0-98.0); Mean Platelet Volume 8.8 fL (7.4-10.4); Platelet Count 348 10x3/uL (130-400); RBC Distribution Width 13.2 % (11.5-14.5); Red Blood Cell (RBC) Count 4.83 mill/uL (4.20-5.40)
[2023-08-18 11:32] LABS: ALT (SGPT) 10 U/L (8-55); AST (SGOT) 14 U/L (5-34); Alkaline Phosphatase 56 U/L (40-110); Anion Gap 11 mmol/L (10-20); BUN (Urea Nitrogen) 9 mg/dL (7.0-18.7); Bilirubin, Total 0.6 mg/dL (0.2-1.2); Calc. Creatinine Clearance 0 mL/min (70-130); Calcium 9.5 mg/dL (7.8-10.44); Carbon Dioxide 27 mmol/L (22-29); Chloride 102 mmol/L (98-107); Estimated GFR 118; Globulin 3.4 g/dL (2.4-3.5); Glucose 97 mg/dL (70-105); Lipase 14 U/L (8-78); Potassium 3.8 mmol/L (3.5-5.1); Protein, Total 7.4 g/dL (6.0-8.3); Sodium 136 mmol/L (136-145)
[2023-08-19] MEDS ORDERED: Ondansetron PF 4 MG/2 ML Vial ONE (07:41)
[2023-08-19] MEDS ORDERED: Ibuprofen 200 MG TAB ONE (07:41)
== END 2023-08-18 12:36 | disposition left against medical advice (07) ==
LOC: ERS 10:28
DX: Z53.1 Procedure and treatment not carried out because of patient's decision for reasons of belief and group pressure (principal)
CPT/HCPCS: 36415; 80053; 83690; 85025

== ENCOUNTER 2023-08-19 06:37 | Emergency (ER) | payer OTHER ==
[2023-08-19 07:38] LABS: #Basophils 0.03 10x3/uL (0.0-0.2); #Eosinphils Less than 0.03 10x3/uL (0.0-0.7); %Basophils 0.2 % (0.0-1.0); %Eosinophils 0.1 % (0.0-10.0); %Lymphocytes 5.6 % (21.0-51.0); %Monocytes 5.9 % (0.0-10.0); %Neutrophils 87.6 % (42.0-75.0); Hemoglobin 12.8 g/dL (12.0-16.0); Mean Corpuscular HGB CONC 33.7 g/dL (32.0-36.0); Mean Corpuscular Hemoglobin 29.4 pg (27.0-31.0); Mean Corpuscular Volume 87.2 fL (78.0-98.0); Mean Platelet Volume 8.8 fL (7.4-10.4); Platelet Count 302 10x3/uL (130-400); RBC Distribution Width 13.1 % (11.5-14.5); Red Blood Cell (RBC) Count 4.36 mill/uL (4.20-5.40)
[2023-08-19 08:00] LABS: ALT (SGPT) 12 U/L (8-55); AST (SGOT) 13 U/L (5-34); Albumin 3.7 g/dL (3.5-5.0); Alkaline Phosphatase 56 U/L (40-110); Anion Gap 14 mmol/L (10-20); BUN (Urea Nitrogen) 7 mg/dL (7.0-18.7); Bilirubin, Total 0.4 mg/dL (0.2-1.2); Calc. Creatinine Clearance 0 mL/min (70-130); Calcium 9.3 mg/dL (7.8-10.44); Carbon Dioxide 23 mmol/L (22-29); Chloride 101 mmol/L (98-107); Estimated GFR 119; Globulin 3.4 g/dL (2.4-3.5); Glucose 106 mg/dL (70-105); Lipase 12 U/L (8-78); Potassium 3.7 mmol/L (3.5-5.1); Protein, Total 7.1 g/dL (6.0-8.3); Sodium 134 mmol/L (136-145)
[2023-08-19 08:23] LABS: Pregnancy Test - Urine (BHCG) Negative (Negative); Pregu Control Background? CLEAR/WHITE (CLR/WHITE); Pregu Control Bar Appear? YES (CONTROL BAR); Specific Gravity 1.024 (1.002-1.036)
== END 2023-08-19 09:04 | disposition home or self-care (01) ==
LOC: ERS 06:37
DX: B34.9 Viral infection, unspecified (principal); E86.0 Dehydration; Z53.1 Procedure and treatment not carried out because of patient's decision for reasons of belief and group pressure
CPT/HCPCS: 36415; 80053; 81025; 83690; 85025; 87081; 87430; 96361; 96374; J2405

== ENCOUNTER 2023-10-30 19:07 | Emergency (ER) | payer BC, SELFPAY ==
[~2023-10-30 19:07] MED LIST: Iopamidol-370 76% 500 ML MDV (1 ML CHARGE) ONE
[2023-10-30 19:57] LABS: Pregnancy Test - Urine (BHCG) Negative (Negative); Pregu Control Background? CLEAR/WHITE (CLR/WHITE); Pregu Control Bar Appear? YES (CONTROL BAR); Specific Gravity 1.016 (1.002-1.036)
[2023-10-30 20:00] LABS: Bacteria/HPF None Seen HPF (None Seen); Bilirubin Negative (Negative); Blood, Urine Negative (Negative); CAUTI Indications for Culture Pelvic or flank pain; Clarity Clear (Clear); Glucose, Urine (Dipstick) Normal (Negative); Ketone, Urine Negative (Negative); Leukocyte Negative Leu/uL (Negative); Nitrite Negative (Negative); Protein, Urine (Dipstick) Negative (Neg-Trace); RBC/HPF 0-3 HPF (0-3); Specific Gravity, Urine 1.017 (1.002-1.036); Urobilinogen Normal mg/dL (Less than 2); WBC/HPF 0-3 HPF (0-3); pH, Urine 6.5 (5.0-9.0)
[2023-10-30 20:03] LABS: Urine Culture Reflex No No
[2023-10-30] MEDS ORDERED: Ketorolac Tromethamine 30 MG (1 mL) VIAL ONE (20:50)
[2023-10-30] MEDS ORDERED: Ondansetron PF 4 MG/2 ML Vial ONE (20:50)
[2023-10-30 22:55] LABS: #Basophils 0.04 10x3/uL (0.0-0.2); %Basophils 0.4 % (0.0-1.0); %Eosinophils 2.1 % (0.0-10.0); %Lymphocytes 38.5 % (21.0-51.0); %Monocytes 8.9 % (0.0-10.0); Hemoglobin 11.4 g/dL (12.0-16.0); Mean Corpuscular HGB CONC 33.5 g/dL (32.0-36.0); Mean Corpuscular Hemoglobin 29.3 pg (27.0-31.0); Mean Corpuscular Volume 87.4 fL (78.0-98.0); Mean Platelet Volume 8.8 fL (7.4-10.4); Platelet Count 393 10x3/uL (130-400); RBC Distribution Width 13.4 % (11.5-14.5); Red Blood Cell (RBC) Count 3.89 mill/uL (4.20-5.40)
[2023-10-30 23:39] LABS: ALT (SGPT) 26 U/L (8-55); AST (SGOT) 13 U/L (5-34); Albumin 3.6 g/dL (3.5-5.0); Alkaline Phosphatase 57 U/L (40-110); Anion Gap 13 mmol/L (10-20); BUN (Urea Nitrogen) 12 mg/dL (7.0-18.7); Bilirubin, Total 0.1 mg/dL (0.2-1.2); Calc. Creatinine Clearance 0 mL/min (70-130); Calcium 9.1 mg/dL (7.8-10.44); Carbon Dioxide 23 mmol/L (22-29); Chloride 107 mmol/L (98-107); Estimated GFR 120; Globulin 3.3 g/dL (2.4-3.5); Glucose 95 mg/dL (70-105); Lipase 29 U/L (8-78); Potassium 3.9 mmol/L (3.5-5.1); Protein, Total 6.9 g/dL (6.0-8.3); Sodium 139 mmol/L (136-145)
== END 2023-10-31 01:16 | disposition home or self-care (01) ==
LOC: ERS 19:07
DX: R10.9 Unspecified abdominal pain (principal); M54.9 Dorsalgia, unspecified; R10.813 Right lower quadrant abdominal tenderness; R10.814 Left lower quadrant abdominal tenderness
CPT/HCPCS: 36415; 74177; 80053; 81001; 81025; 83690; 85025; 96374; 96375; J1885; J2405; Q9967

== ENCOUNTER 2024-03-04 16:00 | Emergency (ER) | payer SELFPAY ==
[2024-03-04 16:44] LABS: #Basophils 0.03 10x3/uL (0.0-0.2); %Basophils 0.3 % (0.0-1.0); %Eosinophils 0.6 % (0.0-10.0); %Lymphocytes 10.7 % (21.0-51.0); %Monocytes 5.2 % (0.0-10.0); %Neutrophils 82.9 % (42.0-75.0); Hematocrit 37.4 % (36.0-47.0); Hemoglobin 12.4 g/dL (12.0-16.0); Mean Corpuscular HGB CONC 33.2 g/dL (32.0-36.0); Mean Corpuscular Hemoglobin 28.3 pg (27.0-31.0); Mean Corpuscular Volume 85.4 fL (78.0-98.0); Mean Platelet Volume 8.9 fL (7.4-10.4); Platelet Count 301 10x3/uL (130-400); RBC Distribution Width 12.7 % (11.5-14.5); Red Blood Cell (RBC) Count 4.38 mill/uL (4.20-5.40)
[2024-03-04 16:55] LABS: BHCG - Serum Negative (NEGATIVE); Pregs Control Background? CLEAR/WHITE (CLR/WHITE); Pregs Control Bar Appear? YES (CONTROL BAR)
[2024-03-04 16:56] LABS: Bacteria/HPF 4+ HPF (None Seen); Bilirubin Negative (Negative); Blood, Urine Trace (Negative); CAUTI Indications for Culture Pelvic or flank pain; Clarity Turbid (Clear); Glucose, Urine (Dipstick) Normal (Negative); Ketone, Urine Negative (Negative); Leukocyte 75 Leu/uL (Negative); Nitrite 2+ (Negative); Protein, Urine (Dipstick) Negative (Neg-Trace); RBC/HPF 0-3 HPF (0-3); Specific Gravity, Urine 1.026 (1.002-1.036); Urobilinogen Normal mg/dL (Less than 2); pH, Urine 5.5 (5.0-9.0)
[2024-03-04 16:58] LABS: Urine Culture Reflex No No
[2024-03-04 17:04] LABS: ALT (SGPT) 15 U/L (8-55); AST (SGOT) 15 U/L (5-34); Alkaline Phosphatase 55 U/L (40-110); Anion Gap 14 mmol/L (10-20); BUN (Urea Nitrogen) 12 mg/dL (7.0-18.7); Bilirubin, Total 0.6 mg/dL (0.2-1.2); Calc. Creatinine Clearance 0 mL/min (70-130); Carbon Dioxide 21 mmol/L (22-29); Chloride 103 mmol/L (98-107); Estimated GFR 117; Globulin 3.8 g/dL (2.4-3.5); Glucose 92 mg/dL (70-105); Lipase 17 U/L (8-78); Potassium 3.8 mmol/L (3.5-5.1); Protein, Total 7.8 g/dL (6.0-8.3); Sodium 134 mmol/L (136-145)
[2024-03-04] MEDS ORDERED: Ondansetron PF 4 MG/2 ML Vial ONE (18:04)
[2024-03-04] MEDS ORDERED: Ketorolac Tromethamine 30 MG (1 mL) VIAL ONE (18:04)
[2024-03-04] MEDS ORDERED: cefTRIAXone (ROCEPHIN) 1 GM VIAL ONE (18:07)
[2024-03-04] MEDS ORDERED: traMADol HCl 50 MG TAB ONE (19:02)
== END 2024-03-04 19:00 | disposition home or self-care (01) ==
LOC: ERS 16:00
DX: N39.0 Urinary tract infection, site not specified (principal); R11.0 Nausea; R53.81 Other malaise
CPT/HCPCS: 36415; 80053; 81001; 83690; 84703; 85025; 96365; 96375; J0696; J1885; J2405